=== PATIENT | female | born 1960 | race Caucasian/White ===

== ENCOUNTER 2019-08-08 07:48 | Outpatient (CLI) | payer OTHER, SELFPAY ==
--- NOTE | ~2019-08-08 | CT_ITS ---
EXAMINATION: CT knee RT w con DATE: 08/08/2019 08:33 INDICATION: Pain, swelling and tightness in the right knee for 2 years following right total knee art hroplasty. TECHNIQUE: High resolution computed tomography (CT) of the right knee was performed with 100 mL Omnip aque-350 intravenous contrast. Additional sagittal and coronal reconstructions were performed. Automa hunter exposure control and iterative reconstruction technique were employed. The dose-length product wa s 398.36 mGy-cm. COMPARISON: Right knee radiograph dated 08/03/2019 and 03/09/2005 FINDINGS: Right total knee arthroplasty without patellar resurfacing which appears well seated in near-anatomic alignment. No fracture. No periprosthetic lucency to suggest loosening or infection. Likely benign c hronic cortically based sclerotic lesion along the posterior metadiaphyseal region of the distal femu r which appears. No etiology identified for to been present since 2005. No cortical erosion, lytic co mponent or periosteal reaction to suggest a more aggressive lesion. Small corticated loose osteochond ral body at the superior recess of the suprapatellar pouch. No right knee joint effusion. Moderate fa tty atrophy at the distal aspect of the vastus lateralis. Contrast opacification in the popliteal, an terior tibial and tibioperoneal trunk with no evident stenosis. No abnormally enhancing lesions ident ified. Soft tissues otherwise unremarkable. IMPRESSION: 1. Expected appearance post right total knee arthroplasty with no acute osseous abnormality, joint ef fusion or other etiology identified for reported right knee pain and swelling. Reviewed, dictated and finalized at location A. IMPRESSION: 1. Expected appearance post right total knee arthroplasty with no acute osseous abnormality, joint effusion or other etiology identified for reported right kn ee pain and swelling.
[2019-08-08 08:10] LABS: Estimated Glomerular Filt Rate > 60
== END 2019-08-08 07:49 | disposition home or self-care (01) ==
LOC: ANHIMG 07:53
PROVIDERS: PCP Internal Medicine; Visit Provider Nurse Practitioner Family
DX: T84.84XA Pain due to internal orthopedic prosthetic devices, implants and grafts, initial encounter (principal); Z96.651 Presence of right artificial knee joint
CPT/HCPCS: 36415; 73701; Q9967

== ENCOUNTER 2020-01-23 00:58 | Outpatient (CLI) | payer OTHER, SELFPAY ==
[2020-01-23 18:51] LABS: SARS-CoV-2 RNA PCR Negative
== END 2020-01-23 00:59 | disposition home or self-care (01) ==
LOC: ANHCOVIDDT 00:59
PROVIDERS: PCP Internal Medicine; Visit Provider Specialist
DX: Z01.818 Encounter for other preprocedural examination (principal); Z20.828 Contact with and (suspected) exposure to other viral communicable diseases
CPT/HCPCS: 87635; C9803; U0003

== ENCOUNTER 2020-01-26 05:21 | Day surgery (SDC) | payer OTHER, SELFPAY ==
[2020-01-25 19:34] VITALS: BMI 42.5
[2020-01-26] VITALS (7 sets, daily range): BP systolic 102–161; BP diastolic 67–113; PULSE 64–112; RESP 13–20; TEMP 36.2–36.9; O2SAT 97–98
--- NOTE | 2020-01-26 | ECHO_ITS ---
Patient Info Name: So Boucher Age: 59 years : 1960 Gender: Female Ht: 68 in Wt: 280 lbs BSA: 2.53 m2 HR: 97 bpm BP: 161 / 101 mmHg Heart Rhythm: Atrial Flutter, Sinus Rhythm Technical Quality: Good Exam Date: 01/26/2020 8:33 AM Exam Location: [facility] Patient Status: Outpatient Admit Date: 01/26/2020 Staff Ordering Physician: Christian Lazar MD Base Filler: Kumar Villegas RDCS Attending Provider: Christian Lazar MD Referring Physician: Cady BRYSON; Exam Type: CA echo transesophageal Study Info Indications 427.32 - Atrial flutter Complete two-dimensional, color flow and Doppler transesophageal study is performed. History/Risk Factors Atrial flutter with cardioversion. Summary 1. There is no thrombus visualized in the left atrial appendage. 2. Left atrial chamber dimension is moderately enlarged. 3. There is mild mitral valve regurgitation. 4. DC cardioversion can be safely performed as there is no left atrial appendage thrombus. Left Ventricle Left ventricular chamber dimension is normal. Left ventricular systolic function is normal with an ejection fraction by Biplane Method of Discs of Empty. Right Ventricle Right ventricular chamber dimension is normal. Left Atria Left atrial chamber dimension is moderately enlarged. Right Atria Right atrial chamber dimension is mildly enlarged. Atrial Appendage There is no thrombus visualized in the left atrial appendage. Aortic Valve The aortic valve is normal. Pulmonic Valve The pulmonic valve is normal. Mitral Valve The mitral valve has normal leaflets. There is mild mitral valve regurgitation. Tricuspid Valve The tricuspid valve leaflets are normal. Pericardium/Pleural The pericardium appears normal. Inferior Vena Cava Not well visualized inferior vena cava with Empty collapse upon inspiration consistent with Empty right atrial pressure, Empty. Aorta The aortic root size at the sinus of Valsalva is not well visualized. Report Signatures
--- NOTE | 2020-01-26 | ECG_ITS ---
Measurements Intervals [place] Rate: 65 P: 58 MO: 214 QRS: 54 QRSD: 113 T: 30 QT: 443 QTc: 461 Interpretive Statements SINUS RHYTHM WITH FIRST DEGREE AV BLOCK INTRAVENTRICULAR CONDUCTION DELAY ABNORMAL ECG Electronically Signed On 01-26-2020 10:36:21 RUG INSPECTOR by Miguel A Vail D.O.
--- NOTE | 2020-01-26 07:27 | ECG_ITS ---
Measurements Intervals [place] Rate: 112 P: 107 TN: 200 QRS: 57 QRSD: 122 T: 46 QT: 386 QTc: 528 Interpretive Statements ATRIAL FLUTTER WITH RAPID VENTRICULAR RESPONSE INTRAVENTRICULAR CONDUCTION DELAY MINIMAL Q WAVES- LATERAL LEADS CONSIDER INFERIOR INFARCT, AGE INDETERMINATE BORDERLINE T WAVE ABNORMALITY- ANTERIOR LEADS ABNORMAL ECG Electronically Signed On 01-26-2020 8:07:46 COURIER DELIVERY DRIVER by Miguel A Vail D.O.
--- NOTE | 2020-01-26 08:36 | PM.IMHP ---
H&P: HPI History of Present Illness Date/Time: 01/26/20 08:36 Chief complaint: Atrial Flutter Narrative: So Boucher is a 59 year old female With a history of atrial fibrillation and I believe also atrial flutter who is admitted today as an outpatient for an attempt at cardioversion. The patient follows with Dr. Landry of our practice and has a history of atrial arrhythmias dating back to 1999 18. She had a history of atrial fibrillation in a paroxysmal fashion and was anticoagulated and treated with beta-blockers and had done well. It looks like I saw this patient in the summer of 2018 when she had recurrent palpitations and was found to be in atrial flutter. I recommended attempt at cardioversion which was done successfully and then she was placed on flecainide as anti rhythmic therapy. It looks like she has done well she last saw Dr. Landry in the office in September of this year at which time she was in sinus rhythm and did not have any significant cardiac complaints. According to the office notes she called the office recently reporting that she had been noncompliant with her flecainide and thought she was back in AF. Electrocardiogram appears to show atrial flutter and she was put on my schedule today as an outpatient for a 2nd attempt at cardioversion. Review of Systems Constitutional: Constitutional: Reports no additional constitutional complaints Eyes: Eyes: Reports no additional eye complaints ENT: Reports system reviewed and no additional complaints, except as documented Cardiovascular: Cardiovascular: Reports palpitations Respiratory: Respiratory: Reports no additional respiratory complaints Gastrointestinal: Gastrointestinal: Reports no additional gastrointestinal complaints Musculoskeletal: Musculoskeletal: Reports no additional musculoskeletal complaints Integumentary/Breasts: Skin/Breast: Reports system reviewed and no additional complaints, except as docu Neurologic: Reports system reviewed and no additional complaints, except as documented Psychiatric: Psychiatric: Reports no additional psychiatric complaints [facility] Past Medical History Medical History (Updated 01/26/20 @ 08:38 by Justyna Schofield APRN) Aftercare following right knee joint replacement surgery Atrial fibrillation, chronic Atrial fibrillation, controlled Atrial flutter Chronic pain of left knee Chronic pain of right knee [place] of foot Dysthymia Essential hypertension Gastroesophageal reflux disease without esophagitis Hx of colonic polyp Hyperlipidemia LDL goal <130 Hypothyroidism (acquired) Labral tear of hip, degenerative Left hip pain USP current use of anticoagulant Obesity (BMI 30-39.9) Osteoarthritis of spine with radiculopathy, lumbar region Painful total knee replacement, right Post-surgical hypothyroidism Primary osteoarthritis of both knees Primary osteoarthritis of left hip Shortness of breath Squamous blepharitis of left upper eyelid Surgical History Surgical History Presence of right artificial knee joint Family History Family History Mother Diabetes mellitus, Onset Age: 86 Cerebrovascular accident, Onset Age: 86 Family history of congestive heart failure, Onset Age: 86 Father Acute myocardial infarction, Onset Age: 63 Other Family history of arthritis Family history of cardiovascular disease Family history of hearing loss Hypertension Social History Social History Smoking status: Current every day smoker Tobacco type: e-cigarettes/vaping Second hand tobacco smoke exposure: Yes Alcohol intake: never Substance use: never Substance use type: does not use Living arrangements: with family Spiritual care concerns: No Meds Home Medications and Allergies Home Medications Medication
--- NOTE | 2020-01-26 09:00 | P.PCNTEECA_ITS ---
RIOS with Cardioversion Date of procedure: 01/26/20 Procedure Type: RIOS/cardioversion Diagnosis: recurrent atrial flutter Indications: 59-year-old woman with history of atrial flutter had been maintained on flecainide and had been in sinus rhythm until she missed several doses and now has recurrence of atrial flutter. Potential or uncertain missed doses of Xarelto as well Description of Procedure: RIOS/cardioversion Sedation: propofol in aliquots total dosage of 80 mg given Findings: the patient was brought to the hot plate plywood press laborer recovery area in the postabsorptive state. The she was patient was placed in the supine position with defibrillator patches in the AP position and the defibrillator set at 200 joules in a synchronized fashion. She then had or pharyngeal benzocaine sprayed for topical anesthesia and then was given propofol for sedation. Following that the esophagus was easily intubated using the RIOS probe and the left atrium was inspected carefully. The left atrium is significantly dilated but there is no visible thrombus the atrium had fairly good mobility because of the atrial flutter the appendage was well-visualized was marcos well and had no evidence of clot. The RIOS probe was then withdrawn and she was counter shocked with 200 joules restoring normal sinus rhythm. Conclusion: Successful RIOS/ cardioversion terminating atrial flutter restoring sinus rhythm using 200 joules x1 shock Christian Lazar MD [facility]
--- NOTE | 2020-01-26 10:25 | SUR.PHASEII ---
Discharge instructions given. All questions answered. IV D/C'd. Pt ambulating w steady gait. No lightheadedness. pt left via wheelchair to spouse's vehicle.
[2020-01-26 12:27] LABS: Anion Gap 8 mmol/L (8-16); Blood Urea Nitrogen 20 mg/dL (7-17); Calcium 8.5 mg/dL (8.4-10.2); Carbon Dioxide 27 mmol/L (22-30); Chloride 106 mmol/L (98-107); Estimated CRCL calculation 81 ml/min; Estimated Glomerular Filt Rate > 60; Glucose 109 mg/dL (65-105); Potassium 3.9 mmol/L (3.4-5.0); Sodium 141 mmol/L (137-145)
== END 2020-01-26 10:27 | disposition home or self-care (01) ==
PROVIDERS: PCP Internal Medicine; Visit Provider Specialist
PROC: 5A2204Z Restoration of Cardiac Rhythm, Single (ICD-10-PCS; principal; 2020-01-26 08:30)
PROC: (CPT 93312; 2020-01-26 08:30)
DX: I48.92 Unspecified atrial flutter (principal); I34.0 Nonrheumatic mitral (valve) insufficiency; I10 Essential (primary) hypertension; E78.5 Hyperlipidemia, unspecified; E03.9 Hypothyroidism, unspecified; K21.9 Gastro-esophageal reflux disease without esophagitis; E66.01 Morbid (severe) obesity due to excess calories; Z68.41 Body mass index [BMI] 40.0-44.9, adult; F17.290 Nicotine dependence, other tobacco product, uncomplicated; Z79.01 Long term (current) use of anticoagulants
CPT/HCPCS: 36415; 80048; 83735; 92960; 93005; 93312; 93320; 93325; J2250; J2704; J3010; J7040

== ENCOUNTER 2020-01-30 13:40 | Outpatient (CLI) | payer OTHER, SELFPAY ==
--- NOTE | ~2020-01-30 | XR_ITS ---
EXAMINATION: XR chest 2V 01/30/2020 13:56 INDICATION: Dyspnea PROCEDURE: 2 view chest COMPARISON: Comparison to multiple prior studies sequentially, with oldest reviewed study dated 11/01. FINDINGS: The lungs are clear. The cardiomediastinal silhouette is within normal limits. There are no pleural effusions. There is no pneumothorax suspected. IMPRESSION: 1: NO ACUTE CARDIOPULMONARY DISEASE. Reviewed, dictated and finalized at location A. DENCY COORDINATOR
== END 2020-01-30 13:41 | disposition home or self-care (01) ==
LOC: ANHIMG 13:42
PROVIDERS: PCP Internal Medicine; Visit Provider Internal Medicine Cardiovascular Disease
DX: R06.00 Dyspnea, unspecified (principal)
CPT/HCPCS: 71046

== ENCOUNTER 2020-01-30 17:09 | Emergency (ER) | payer OTHER, SELFPAY ==
[2020-01-30] VITALS (12 sets, daily range): BP systolic 145–198; BP diastolic 61–80; PULSE 45–66; RESP 15–22; TEMP 36.8; O2SAT 94–97
--- NOTE | ~2020-01-30 | CT_ITS ---
EXAMINATION: CTA chest PE protocol EXAM DATE: 01/30/2020 20:02 INDICATION: Chest pain . Shortness of breath, cardioverted recently for atrial fibrillation. TECHNIQUE: Spiral CTA of the chest (pulmonary arteries) was performed with 100 cc Omnipaque 350 intr avenous contrast injection. Images were acquired during the pulmonary arterial phase. Coronal maxi mum intensity projection 3D-reconstructions were created by the technologist on dedicated workstation . Axial, coronal and sagittal reformatted images were reviewed. The dose-length product (DLP) for t his examination was 1039.47 mGy-cm. The exposure was tailored according to patient size (auto mA ex posure control), and iterative reconstruction (ASIR) was used as additional dose reduction technique. Comparison is made to prior examination from 05/20/2017. FINDINGS: Pulmonary arteries are well opacified and without intraluminal filling defects. No thora cic aortic dissection. There is cardiomegaly and dependent predominant groundglass opacities, distri bution is most consistent with pulmonary edema. No change in 3 and 4 mm right lower lobe noncalcified granulomas. There are no pleural or pericardial effusions. Tracheobronchial tree is patent. The re is no mediastinal, hilar or axillary lymphadenopathy. There is no pneumothorax. The main, cent ral pulmonary arteries are dilated which can indicate elevated pulmonary arterial pressure, pulmonary arterial hypertension. There is mild coronary arterial calcification, arterial sclerosis. Upper ab domen is unremarkable. There is thoracic spondylosis without osteoblastic or osteolytic lesions stephany ntified. IMPRESSION: 1. No pulmonary emboli. 2. Cardiomegaly. Dilated pulmonary arteries. 3. Dependent predominant groundglass opacities most likely pulmonary edema. Infection not excludable . Reviewed, dictated and finalized at location A. ESS SPECIALIST IMPRESSION: 1. No pulmonary emboli. 2. Cardiomegaly. Dilated pulmonary arteries. 3. Dependent predominant groundglass opacities most likely pulmonary edema. In fection not excludable.
--- NOTE | 2020-01-30 17:15 | ED.CHESTPAIN ---
HPI - Chest Pain General Chief Complaint: Chest Pain Stated Complaint: Chest Pain Time Seen by Provider: 01/30/20 17:12 History of Present Illness HPI narrative: 59 yo female w/ h/o htn, paroxysmal a-fib presents to the the ED for for chest pain. She has had chest pain for a few days. Mild. Pressure. Worse with exertion and lying flat. Associated wtih NORIEGA. She had cardioversion for atrial fibrillation on 01/25. Follow-up EKG unremarkable. CXR done today was negative. Related Data Home Medications Medication Instructions Recorded Confirmed omeprazole 20 mg capsule,delayed 20 mg PO DAILY 01/04/19 01/26/20 release Allergies Allergy/AdvReac Type Severity Reaction Status Date / Time No Known Allergies Allergy Verified 01/30/20 17:19 Review of Systems Review of Systems: All systems reviewed & are unremarkable except as noted in HPI and below Constitutional: Constitutional: Denies chills and Denies fever(s) ENT: Denies dizziness Cardiovascular: Cardiovascular: Reports chest pain Respiratory: Respiratory: Denies cough and Reports dyspnea Gastrointestinal: Gastrointestinal: Denies abdominal pain and Denies nausea Musculoskeletal: Musculoskeletal: Denies back pain Neurologic: Denies dizziness, Reports headache(s) and Denies weakness Psychiatric: Psychiatric: Denies anxiety [facility] Past Medical History Medical History Aftercare following right knee joint replacement surgery Atrial fibrillation, chronic Atrial fibrillation, controlled Atrial flutter Chronic pain of left knee Chronic pain of right knee [place] of foot Dysthymia Essential hypertension Gastroesophageal reflux disease without esophagitis Hx of colonic polyp Hyperlipidemia LDL goal <130 Hypothyroidism (acquired) Labral tear of hip, degenerative Left hip pain residential current use of anticoagulant Obesity (BMI 30-39.9) Osteoarthritis of spine with radiculopathy, lumbar region Painful total knee replacement, right Post-surgical hypothyroidism Primary osteoarthritis of both knees Primary osteoarthritis of left hip Shortness of breath Squamous blepharitis of left upper eyelid Surgical History Surgical History Presence of right artificial knee joint Family History Family History Mother Diabetes mellitus, Onset Age: 86 Cerebrovascular accident, Onset Age: 86 Family history of congestive heart failure, Onset Age: 86 Father Acute myocardial infarction, Onset Age: 63 Other Family history of arthritis Family history of cardiovascular disease Family history of hearing loss Hypertension Social History Social History Smoking status: Current every day smoker Tobacco type: e-cigarettes/vaping Second hand tobacco smoke exposure: Yes Alcohol intake: never Substance use: never Substance use type: does not use Spiritual care concerns: No Exam Const: General: no acute distress and alert Nutritional Appearance: obese Orientation/consciousness: patient oriented x3 HENMT: Head: normal to inspection Neck: Neck: normal visual inspection Chest: Chest palpation & inspection: normal inspection of the chest and no tenderness Resp: Effort & Inspection: normal respiratory effort Auscultation: clear to auscultation bilaterally Cardio: Rate: regular rate Rhythm: regular rhythm GI: GI Palp: Yes Soft to palpation and No Tenderness to palpation present (GI) Skin: General skin exam: normal color Neuro: General: patient oriented x3, moves all extremities, no focal motor deficits and CN's II-XI intact bilaterally Speech: normal speech Extrem: General: edema bilateral (Mild) Course Vital Signs Vital signs: Vital Signs Temperature 36.8 C 01/30/20 17:14 Pulse Rate 66 1
--- NOTE | 2020-01-30 17:18 | ECG_ITS ---
Measurements Intervals [place] Rate: 57 P: 76 PA: 201 QRS: 35 QRSD: 122 T: 46 QT: 445 QTc: 435 Interpretive Statements SINUS BRADYCARDIA BORDERLINE AV CONDUCTION DELAY BASELINE ARTIFACT- I, II, AVR, V3 BORDERLINE ECG Electronically Signed On 01-31-2020 7:03:13 POOL INSTALLER by Miguel A Vail D.O.
[2020-01-30] MEDS: ASPIRIN 81 MG CHEWABLE TABLET 324 MG PO (17:29)
[2020-01-30 17:34] LABS: Basophils Absolute Auto 0.1 K/mm3 (0.0-0.1); Basophils Percent Auto 0.6 % (0.2-1.2); Eosinophils Absolute Auto 0.2 K/mm3 (0-0.3); Eosinophils Percent Auto 1.7 % (0-4.4); Hematocrit 37.3 % (37.0-47.0); Hemoglobin 12.1 g/dL (12.0-15.0); Immature Granulocyte Absolute 0.05 K/mm3 (0.00-0.031); Immature Granulocyte Percent A 0.4 % (0-0.5); Lymphocytes Absolute Auto 2.76 K/mm3 (0.9-3.2); Lymphocytes Percent Auto 23.4 % (18.3-44.2); Mean Corpuscular HGB Conc 32.4 g/dl (32-36); Mean Corpuscular Hemoglobin 26.8 pg (26-34); Mean Corpuscular Volume 82.5 fl (80-100); Mean Platelet Volume 11.1 fl (7.4-10.4); Monocytes Absolute Auto 0.9 K/mm3 (0.1-0.6); Monocytes Percent Auto 7.7 % (2.6-8.5); Neutrophils Absolute Auto 7.8 K/mm3 (1.3-6.7); Neutrophils Percent Auto 66.2 % (45.5-73.1); Platelet Count Result 286 k/mm3 (150-375); Red Blood Count 4.52 M/mm3 (4.2-5.4); White Blood Count 11.8 K/mm3 (4.5-10.0)
[2020-01-30 17:43] LABS: Anion Gap 7 mmol/L (8-16); Blood Urea Nitrogen 13 mg/dL (7-17); Calcium 8.6 mg/dL (8.4-10.2); Carbon Dioxide 29 mmol/L (22-30); Chloride 103 mmol/L (98-107); Estimated CRCL calculation 90 ml/min; Estimated Glomerular Filt Rate > 60; Glucose 125 mg/dL (65-105); INR 1.3; Potassium 3.8 mmol/L (3.4-5.0); Prothrombin Time 16.5 Seconds (11.1-14.7); Sodium 139 mmol/L (137-145)
[2020-01-30 17:44] LABS: Partial Thromboplastin Time 31.5 SECONDS (22.3-36.8)
[2020-01-30 17:55] LABS: Troponin I < 0.012 ng/mL (0.000-0.034)
[2020-01-30 20:44] LABS: Troponin I < 0.012 ng/mL (0.000-0.034)
[2020-01-30 21:10] LABS: NT Pro B Type Natriuretic Pept 652 PG/ML (5-100)
[2020-01-31 12:24] LABS: SARS-CoV-2 RNA PCR Negative
== END 2020-01-30 21:59 | disposition home or self-care (01) ==
PROVIDERS: Emergency Provider Emergency Medicine; PCP Internal Medicine
DX: R07.89 Other chest pain (principal); R06.00 Dyspnea, unspecified; Z20.828 Contact with and (suspected) exposure to other viral communicable diseases; I48.0 Paroxysmal atrial fibrillation; I10 Essential (primary) hypertension; K21.9 Gastro-esophageal reflux disease without esophagitis; E78.5 Hyperlipidemia, unspecified; E03.9 Hypothyroidism, unspecified; Z79.01 Long term (current) use of anticoagulants; M47.816 Spondylosis without myelopathy or radiculopathy, lumbar region; Z96.651 Presence of right artificial knee joint; M17.0 Bilateral primary osteoarthritis of knee; M16.12 Unilateral primary osteoarthritis, left hip; Z86.010 Personal history of colon polyps; F17.290 Nicotine dependence, other tobacco product, uncomplicated; R00.1 Bradycardia, unspecified; R94.31 Abnormal electrocardiogram [ECG] [EKG]; I51.7 Cardiomegaly; R91.8 Other nonspecific abnormal finding of lung field
CPT/HCPCS: 36415; 71275; 80048; 83880; 84484; 85025; 85610; 85730; 87635; 93005; 99284; A9270; C9803; Q9967; U0003

== ENCOUNTER 2020-02-26 08:29 | Outpatient (CLI) | payer OTHER, SELFPAY ==
--- NOTE | 2020-04-04 13:40 | WPDHOMESLEEP ---
Sleep Study - Home Unattended Date of Study: 02/26/20 Ordering Provider: Jordi Schwartz MD Interpreting Physician: Latha Cespedes MD Home Sleep Study Type: Apnea Link Air Height: 1.73 m Weight: 122.47 kg Body Mass Index: 41.0 Neck Circumference (inches): 16 [place]: 5 Reason for Sleep Study history of sleep apnea, used CPAP device in the past; now with increased symptom Split night study 03/07/2013 : AHI 4.9; CPAP optimal pressure 14 cm Sleep History So Boucher is a 59-year-old female who was diagnosed with obstructive sleep apnea syndrome 8 years ago, used CPAP for a short period. She currently has excessive daytime sleepiness and difficulty waking in the morning. She frequently snores, occasionally loudly enough that others complain about it. She does not awaken at night with heartburn, belching or coughing. She rarely awakens from sleep feeling short of breath. She really has trouble sleeping with a cold. She rarely gasps for breath at night. She frequently has breathing problems at night observed by others. She does not sweat excessively at night or notice her heart pounding or beating irregularly at night. She occasionally falls asleep during the day, rarely involuntarily and never while driving. She does not fall asleep while exerting physical effort. She does not have loss of muscle tone was strong emotion. She does not have daytime dysfunction due to excessive sleepiness, currently is retired. She does not feel paralyzed on waking or falling asleep and does not have vivid dreamlike scenes upon awakening or falling asleep. She is not afraid to go to sleep. She does not have nightmares. She occasionally remembers her dreams. She rarely has racing thoughts, really feels sad or depressed. She never has anxiety. She does not have muscular tension, does not notice parts of her body jerking and she does not kick at night. She occasionally has crawling and aching feelings in her legs. She does not have leg pain at night and does not wake up with morning jaw pain. She does not grind her teeth at night. She is not bothered by pain during the day. She is not awakened by pain at night. She occasionally wakes up feeling stiff in the morning, rarely was sore achy muscles rarely with pain in the neck and spine. SHe has faigue. Normal bedtime is 11:00 p.m. falling asleep within 15 or 20 minutes, waking twice at night to urinate. He takes only a few minutes for her to return to sleep. She wakes in the morning at 9:00 a.m.. Weekend schedule shows that she goes to bed later, 1:00 a.m. but still wakes at 9:00 a.m.. She estimates getting 7-8 hours of sleep at night. She does take naps in the afternoon or evening. A short nap may be refreshing. She feels better in the morning compared other times of day. Habits: She currently vapes. No mention of smoking tobacco, using caffeine, alcohol or recreational drugs. 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
[2020-04-04 13:54] VITALS: BMI 41.0
== END 2020-02-26 08:30 | disposition home or self-care (01) ==
LOC: ANHCSM 08:30
PROVIDERS: PCP Internal Medicine; Visit Provider Internal Medicine
DX: G47.30 Sleep apnea, unspecified (principal); G47.33 Obstructive sleep apnea (adult) (pediatric)
CPT/HCPCS: 95806

== ENCOUNTER → 2020-05-08 03:52 | Outpatient (CLI) | payer OTHER, SELFPAY ==
[2020-05-08 16:22] LABS: SARS-CoV-2 RNA PCR Negative
== END ==
PROVIDERS: PCP Internal Medicine; Visit Provider Internal Medicine Critical Care Medicine
DX: R68.89 Other general symptoms and signs (principal); Z20.822 Contact with and (suspected) exposure to COVID-19
CPT/HCPCS: C9803; U0003; U0005

== ENCOUNTER 2020-05-10 09:06 | Outpatient (CLI) | payer OTHER, SELFPAY ==
--- NOTE | 2020-05-24 15:31 | WPDSLEEPSTUD ---
Sleep Study Ordering Provider: Jordi Guerrero MD Interpreting Physician: Lahta Cespedes MD Sleep Study Type: CPAP Titration Height: 1.73 m Weight: 122.47 kg Body Mass Index: 41.0 Neck Circumference (inches): 16 [place]: 8 Reason for Sleep Study 02/26/2020 Home sleep test with severe obstructive sleep apnea with an AHI of 35, multiple desaturations, minimum of 72%, 28 minutes spent below 88% as well as snoring. This patient has a history of atrial fibrillation. She presents for CPAP titration. She had a diagnosis of PATRICK in the past, however was not able to tolerate CPAP. Sleep History So Boucher is a 59-year-old female who was diagnosed with obstructive sleep apnea syndrome 8 years ago, used CPAP for a short period. She currently has excessive daytime sleepiness and difficulty waking in the morning. She frequently snores, occasionally loudly enough that others complain about it. She does not awaken at night with heartburn, belching or coughing. She rarely awakens from sleep feeling short of breath. She really has trouble sleeping with a cold. She rarely gasps for breath at night. She frequently has breathing problems at night observed by others. She does not sweat excessively at night or notice her heart pounding or beating irregularly at night. She occasionally falls asleep during the day, rarely involuntarily and never while driving. She does not fall asleep while exerting physical effort. She does not have loss of muscle tone was strong emotion. She does not have daytime dysfunction due to excessive sleepiness, currently is retired. She does not feel paralyzed on waking or falling asleep and does not have vivid dreamlike scenes upon awakening or falling asleep. She is not afraid to go to sleep. She does not have nightmares. She occasionally remembers her dreams. She rarely has racing thoughts, rarely feels sad or depressed. She never has anxiety. She does not have muscular tension, does not notice parts of her body jerking and she does not kick at night. She occasionally has crawling and aching feelings in her legs. She does not have leg pain at night and does not wake up with morning jaw pain. She does not grind her teeth at night. She is not bothered by pain during the day. She is not awakened by pain at night. She occasionally wakes up feeling stiff in the morning, rarely was sore achy muscles rarely with pain in the neck and spine. She has faigue. Normal bedtime is 11:00 p.m. falling asleep within 15 or 20 minutes, waking twice at night to urinate. He takes only a few minutes for her to return to sleep. She wakes in the morning at 9:00 a.m.. Weekend schedule shows that she goes to bed later, 1:00 a.m. but still wakes at 9:00 a.m.. She estimates getting 7-8 hours of sleep at night. She does take naps in the afternoon or evening. A short nap may be refreshing. She feels better in the morning compared other times of day. Habits: She currently vapes. No mention of smoking tobacco, using caffeine, alcohol or recreational drugs. 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
[2020-05-24 15:32] VITALS: BMI 41.0
== END 2020-05-10 09:07 | disposition home or self-care (01) ==
LOC: ANHCSM 09:06
PROVIDERS: PCP Internal Medicine; Visit Provider Internal Medicine
DX: G47.33 Obstructive sleep apnea (adult) (pediatric) (principal)
CPT/HCPCS: 95811

== ENCOUNTER 2021-03-26 00:28 | Day surgery (SDC) | payer OTHER, SELFPAY ==
[2021-03-24 09:13] VITALS: BMI 43.1
[2021-03-26 07:49] VITALS: BP 111/92; PULSE 64; RESP 16; TEMP 35.8; O2SAT 97; BMI 42.6
[2021-03-26] MEDS: LACTATED RINGERS 1,000 ML 150 ML IV CONT (07:57)
--- NOTE | 2021-03-26 09:01 | PM.HPGS ---
History of Present Illness History of Present Illness Consent: Risks, benefits, and alternatives have been discussed and questions answered. Patient agrees to proceed with procedure. Chief complaint: neoplasm screening Narrative: So Boucher is a 60 year old female with colon polyp 6 years ago. Review of Systems Constitutional: Constitutional: Denies headache(s) and Denies weakness Eyes: Eyes: Denies blurry vision ENT: Reports Normal hearing present, Denies headache(s) and Denies neck pain Cardiovascular: Cardiovascular: Denies chest pain and Denies dyspnea Respiratory: Respiratory: Denies dyspnea Gastrointestinal: Gastrointestinal: Reports no additional gastrointestinal complaints Genitourinary: Genitourinary: Denies dysuria Musculoskeletal: Musculoskeletal: Denies neck pain Integumentary/Breasts: Skin/Breast: Denies dry skin Neurologic: Reports Normal hearing present, Denies headache(s) and Denies weakness Psychiatric: Psychiatric: Denies anxiety Endocrine: Endocrine: Denies change in body appearance Hematologic/Lymphatic: Hematologic/Lymphatic: Denies easy bleeding Allergic/Immunologic: Allergic/Immunologic: Denies urticaria PMFSH Past Medical History Medical History Aftercare following right knee joint replacement surgery Atrial fibrillation, chronic Atrial fibrillation, controlled Atrial flutter Chronic pain of left knee Chronic pain of right knee [place] of foot Dysthymia Essential hypertension Gastroesophageal reflux disease without esophagitis History of vaginal delivery Hx of colonic polyp Hyperlipidemia LDL goal <130 Hypothyroidism (acquired) Labral tear of hip, degenerative Left hip pain longterm current use of anticoagulant Obesity (BMI 30-39.9) Osteoarthritis of spine with radiculopathy, lumbar region Painful total knee replacement, right Post-surgical hypothyroidism Primary osteoarthritis of both knees Primary osteoarthritis of left hip Shortness of breath Squamous blepharitis of left upper eyelid Surgical History Surgical History H/O thyroidectomy History of endometrial ablation Hx of tonsillectomy Presence of right artificial knee joint Family History Family History Mother Diabetes mellitus, Onset Age: 86 Cerebrovascular accident, Onset Age: 86 Family history of congestive heart failure, Onset Age: 86 Father Acute myocardial infarction, Onset Age: 63 Other Family history of arthritis Family history of cardiovascular disease Family history of hearing loss Hypertension Social History Social History Smoking status: Former smoker Tobacco type: e-cigarettes/vaping Second hand tobacco smoke exposure: Yes Alcohol intake: never Substance use: never Substance use type: does not use Living arrangements: with family Spiritual care concerns: No Meds Home Medications and Allergies Home Medications Medication Instructions Recorded Confirmed Type omeprazole 20 mg capsule,delayed 20 mg PO DAILY 01/04/19 03/26/21 History release flecainide 100 mg tablet 100 mg PO Q12H #180 tablet 02/23/20 03/26/21 Rx escitalopram oxalate 10 mg tablet 10 mg PO DAILY #90 tablet 04/29/20 03/26/21 Rx atorvastatin 10 mg tablet 10 mg PO DAILY #90 tablet 10/29/20 03/26/21 Rx levothyroxine 75 mcg tablet 75 mcg PO DAILY #90 tablet 10/29/20 03/26/21 Rx furosemide 20 mg tablet 20 mg PO QAM #90 tablet 02/13/21 03/26/21 Rx rivaroxaban 20 mg tablet 20 mg PO DAILY #90 tablet 02/13/21 03/26/21 Rx Allergies Allergy/AdvReac Type Severity Reaction Status Date / Time No Known Allergies Allergy Verified 03/26/21 07:47 Vital Signs Vital Signs - 24 hr 03/26/21 07:49 Temperature 96.4 F L Pulse Rate 64 Respiratory Rate
[2021-03-26 09:32] VITALS: BP 127/60; PULSE 42; RESP 15; O2SAT 94
[2021-03-26 09:42] VITALS: BP 166/69; PULSE 48; RESP 17; O2SAT 96
[2021-03-26 09:52] VITALS: BP 173/81; PULSE 45; RESP 19; O2SAT 97
== END 2021-03-26 09:59 | disposition home or self-care (01) ==
PROVIDERS: PCP Internal Medicine; Visit Provider Internal Medicine Gastroenterology
PROC: 0DJD8ZZ Inspection of Lower Intestinal Tract, Via Natural or Artificial Opening Endoscopic (ICD-10-PCS; CPT 45378; principal; 2021-03-26 09:00)
DX: Z12.11 Encounter for screening for malignant neoplasm of colon (principal); D12.2 Benign neoplasm of ascending colon; K63.5 Polyp of colon; K57.30 Diverticulosis of large intestine without perforation or abscess without bleeding; K64.8 Other hemorrhoids; I48.20 Chronic atrial fibrillation, unspecified; I10 Essential (primary) hypertension; K21.9 Gastro-esophageal reflux disease without esophagitis; E78.5 Hyperlipidemia, unspecified; E89.0 Postprocedural hypothyroidism; Z87.891 Personal history of nicotine dependence; Z79.01 Long term (current) use of anticoagulants
CPT/HCPCS: 45385; 88305; J2704; J7120

== ENCOUNTER 2021-04-22 11:50 | Inpatient (IN) | payer OTHER, SELFPAY ==
[2021-04-22] VITALS (15 sets, daily range): BP systolic 101–160; BP diastolic 66–98; PULSE 111–122; RESP 12–20; TEMP 36.4–37.1; O2SAT 94–100; BMI 43.4
--- NOTE | ~2021-04-22 | XR_ITS ---
EXAMINATION: XR chest 2V DATE: 04/22/2021 12:28 INDICATION: Chest pain. Dyspnea. TECHNIQUE: Frontal and lateral views of the chest were obtained. COMPARISON: Chest 2 views 01/30/2020, chest CT 01/30/2020 FINDINGS: There is mild atelectasis in left lower lung zone. No pleural effusion or pneumothorax. The heart size is normal. There are surgical clips in the neck. IMPRESSION: 1. Mild atelectasis in left lower lung zone. Reviewed, dictated and finalized at location A. COLLECTION ASSOCIATE
--- NOTE | 2021-04-22 11:54 | ECG_ITS ---
Measurements Intervals [place] Rate: 109 P: GA: 0 QRS: 52 QRSD: 116 T: 18 QT: 341 QTc: 460 Interpretive Statements ATRIAL FIBRILLATION WITH RAPID VENTRICULAR RESPONSE INTRAVENTRICULAR CONDUCTION DELAY COMPARED TO ECG 01/30/2020 17:20:56 ATRIAL FIBRILLATION NOW PRESENT INTRAVENTRICULAR CONDUCTION DELAY NOW PRESENT Electronically Signed On 04-22-2021 12:16:45 CASH REGISTER MECHANIC by Enoc Gooden M.D.
[2021-04-22 12:16] LABS: Basophils Absolute Auto 0.1 K/mm3 (0.0-0.1); Basophils Percent Auto 0.7 % (0.2-1.2); Eosinophils Absolute Auto 0.2 K/mm3 (0-0.3); Eosinophils Percent Auto 1.7 % (0-4.4); Hematocrit 49.7 % (37.0-47.0); Hemoglobin 15.6 g/dL (12.0-15.0); Immature Granulocyte Absolute 0.03 K/mm3 (0.00-0.031); Immature Granulocyte Percent A 0.3 % (0-0.5); Lymphocytes Absolute Auto 2.54 K/mm3 (0.9-3.2); Lymphocytes Percent Auto 24.7 % (18.3-44.2); Mean Corpuscular HGB Conc 31.4 g/dl (32-36); Mean Corpuscular Hemoglobin 27.5 pg (26-34); Mean Corpuscular Volume 87.7 fl (80-100); Mean Platelet Volume 11.2 fl (7.4-10.4); Monocytes Absolute Auto 0.7 K/mm3 (0.1-0.6); Monocytes Percent Auto 6.9 % (2.6-8.5); Neutrophils Absolute Auto 6.8 K/mm3 (1.3-6.7); Neutrophils Percent Auto 65.7 % (45.5-73.1); Platelet Count Result 317 k/mm3 (150-375); Red Blood Count 5.67 M/mm3 (4.2-5.4); Red Cell Distribution Width 17.4 % (11.5-14.5); White Blood Count 10.3 K/mm3 (4.5-10.0)
[2021-04-22 12:26] LABS: INR 1.2; Prothrombin Time 14.9 Seconds (11.1-14.7)
[2021-04-22] MEDS: ASPIRIN 81 MG CHEWABLE TABLET 324 MG PO (12:33)
[2021-04-22 12:38] LABS: Alanine Aminotransferase 23 U/L (4-35); Albumin Level 4.8 g/dL (3.5-5.1); Alkaline Phosphatase 148 U/L (38-126); Anion Gap 11 mmol/L (8-16); Aspartate Amino Transferase 30 U/L (14-36); Bilirubin,Total 1.5 mg/dL (0.2-1.3); Blood Urea Nitrogen 17 mg/dL (7-17); Calcium 9.2 mg/dL (8.4-10.2); Carbon Dioxide 30 mmol/L (22-30); Chloride 102 mmol/L (98-107); Estimated CRCL calculation 88 ml/min; Estimated Glomerular Filt Rate > 60; Glucose 137 mg/dL (65-110); Lipase 97 U/L (23-300); Potassium 3.9 mmol/L (3.4-5.0); Sodium 143 mmol/L (137-145)
--- NOTE | 2021-04-22 12:44 | ED.ARRPALP ---
HPI - Arrhythmia/Palpitations General Chief Complaint: Arrhythmia/Palpitations Stated Complaint: palpitations, SOB Time Seen by Provider: 04/22/21 12:14 Source: patient and family Mode of arrival: ambulatory Limitations: no limitations History of Present Illness HPI narrative: Patient is 60 years old white female presented to the ED with fast irregular heartbeat that started at 9 AM today. Patient on Xarelto. History of paroxysmal A. fib. Patient normally in normal sinus rhythm. The above symptoms was associated with chest tightness and shortness of breath. Patient denies any fever, chills, nausea, vomiting, back pain, headache. Patient reports a lot of stress lately. Related Data Home Medications Medication Instructions Recorded Confirmed omeprazole 20 mg capsule,delayed 20 mg PO DAILY 01/04/19 03/26/21 release Allergies Allergy/AdvReac Type Severity Reaction Status Date / Time No Known Allergies Allergy Verified 04/22/21 11:57 Review of Systems Review of Systems: CONSTITUTIONAL: Denies fever, chills, or sweats. EYES: Denies visual changes, redness, or discharge. ENT: Denies rhinorrhea, congestion, sore throat, or otalgia. CARDIOVASCULAR: Denies chest pain, palpitations, or edema. RESPIRATORY: Denies cough or dyspnea. GASTROINTESTINAL: Denies abdominal pain, nausea, vomiting, or diarrhea. GENITOURINARY: Denies dysuria or hematuria. SKIN: Denies rash or itching. MUSCULOSKELETAL: Denies back pain, joint pain, or myalgia. NEUROLOGIC: Denies headache, numbness, or weakness. PSYCHIATRIC: Denies anxiety or depression. 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 Obesity (BMI 30-39.9) Osteoarthritis of spine with radiculopathy, lumbar region Painful total knee replacement, right Post-surgical hypothyroidism Primary osteoarthritis of both knees Primary osteoarthritis of left hip Shortness of breath Squamous blepharitis of left upper eyelid Surgical History Surgical History H/O thyroidectomy History of endometrial ablation Hx of tonsillectomy Presence of right artificial knee joint Family History Family History Mother Diabetes mellitus, Onset Age: 86 Cerebrovascular accident, Onset Age: 86 Family history of congestive heart failure, Onset Age: 86 Father Acute myocardial infarction, Onset Age: 63 Other Family history of arthritis Family history of cardiovascular disease Family history of hearing loss Hypertension Social History Social History Smoking status: Former smoker Tobacco type: e-cigarettes/vaping Second hand tobacco smoke exposure: Yes Alcohol intake: never Substance use: never Substance use type: does not use Spiritual care concerns: No Exam Narrative: General appearance: Well-developed, well-nourished Skin: Normal color Head: Normocephalic, nontraumatic Eyes: Clear conjunctiva ENT: Oropharynx normal, ears normal, nose normal Neck: Supple, nontender Chest and respiratory: Airway patent, no respiratory distress, no accessory muscle use Heart: Tachycardia, irregular irregularity Abdomen: Soft, nontender, no organomegaly, quiet bowel sounds Vascular: Normal peripheral pulses, normal capillary refill. Musculoskeletal: Normal range of motion, nontender back Neurologic: A
[2021-04-22 12:50] LABS: Troponin I < 0.012 ng/mL (0.000-0.034)
[2021-04-22] MEDS: dilTIAZem 100 MG/100 ML 100 MG/100 ML BAG IV CONT (12:54)
[2021-04-22] MEDS: dilTIAZem HCl INJ 25 MG/5 ML VIAL 15 MG IV PUSH (12:55)
--- NOTE | 2021-04-22 14:13 | ECG_ITS ---
Measurements Intervals [place] Rate: 113 P: [place]: 0 QRS: 25 QRSD: 110 T: -30 QT: 386 QTc: 530 Interpretive Statements ATRIAL FLUTTER/TACHYCARDIA WITH RAPID VENTRICULAR RESPONSE ST DEVIATION AND MODERATE T-WAVE ABNORMALITY, CONSIDER INFERIOR ISCHEMIA [-0.1+ mV T- WAVE IN II/aVF] ABNORMAL ECG COMPARED TO ECG 04/22/2021 12:00:24 ATRIAL FLUTTER NOW PRESENT Electronically Signed On 04-22-2021 16:28:02 CARROTING MACHINE OFFBEARER by Fritz Estrada M.D.
--- NOTE | 2021-04-22 14:15 | PM.IMHP ---
H&P: HPI History of Present Illness Date/Time: 04/22/21 14:15 Chief Complaint: Palpitations. Narrative: This is a 60-year-old female with paroxysmal atrial fibrillation, hypertension, hyperlipidemia, hypothyroidism, and untreated obstructive sleep apnea who presented to the emergency department today for evaluation of palpitations. Shortly after getting out of bed this morning, she developed sudden onset of palpitations with sensations of a racing heart, mild chest tightness, and shortness of breath. The symptoms are similar to those she has had with atrial fibrillation in the past and after approximately 3 hours she decided to come in for evaluation. Indeed she was found to be in atrial fibrillation/flutter with rapid ventricular response and she was started on a Cardizem drip in the emergency department and she has since been admitted to the IMU for further care. She is a patient of Dr. Landry and she has been on flecainide for many years, previously requiring cardioversion. She states compliance with her medication and she has not had any recent illnesses though she admits to increasing familial stress over the past 1 week. At the time of my evaluation she has no specific complaints and she is not currently having any chest pain. Review of Systems Review of Systems: 12 systems were reviewed. No fever, chills, or sweats. She denies recent cold and flu symptoms. No syncope or near syncope. She denies pleuritic pain. No nausea, vomiting, or diarrhea. Except as documented, all other systems were reviewed and are negative. [facility], [facility] Past Medical History Medical History (Updated 04/22/21 @ 16:44 by Amena Valdez PA-C) Atrial flutter Dysthymia Essential hypertension Gastroesophageal reflux disease without esophagitis Hyperlipidemia [facility]PC current use of anticoagulant Obstructive sleep apnea Intolerant to CPAP. Osteoarthritis Paroxysmal atrial fibrillation Restless leg syndrome Surgical History Surgical History (Updated 04/22/21 @ 16:39 by Amena Valdez PA-C) History of arthroplasty of right knee History of colonoscopy with polypectomy History of endometrial ablation History of thyroidectomy History of tonsillectomy Family History Family History Mother Diabetes mellitus, Onset Age: 86 Cerebrovascular accident, Onset Age: 86 Family history of congestive heart failure, Onset Age: 86 Father Acute myocardial infarction, Onset Age: 63 Other Family history of arthritis Family history of cardiovascular disease Family history of hearing loss Hypertension Social History Social History (Updated 04/22/21 @ 16:41 by Amena Valdez PA-C) Social History: Surrogate decision-maker: Joseline Boucher, . CODE STATUS: Full code. Smoking status: Current every day smoker Tobacco type: e-cigarettes/vaping Second hand tobacco smoke exposure: Yes Alcohol intake: never Substance use: never Substance use type: does not use Meds Home Medications and Allergies Home Medications Medication Instructions Recorded Confirmed Type omeprazole 20 mg capsule,delayed 20 mg PO DAILY 01/04/19 03/26/21 History release flecainide 100 mg tablet 100 mg PO Q12H #180 tablet 02/23/20 03/26/21 Rx escitalopram oxalate 10 mg tablet 10 mg PO DAILY #90 tablet 04/29/20 03/26/21 Rx atorvastatin 10 mg PO HS 04/22/21 04/22/21 History furosemide 20 mg PO DAILY 04/22/21 04/22/21 History levothyroxine 75 mcg PO QAM 04/22/21 04/22/21 History rivaroxaban [Xarelto] 20 mg PO HS 04/22/21 04/22/21 History Allergies Allergy/AdvReac Type Severity Reaction Status Date / Time No Known Allergies Allergy Verified 04/22/21 11:57 Vital Signs Vital Signs - 24 hr 04/22/21 11:52 04/22/21 12:33 04/22/21 12:54 Temperature 97.8 F Pulse Rate 112 H 112 H 111 H Respiratory Rate 16 19 Blood Pressure 160/98 H 133/78 101/80 Pulse Oximetry 100 99
[2021-04-22 15:28] LABS: Troponin I < 0.012 ng/mL (0.000-0.034)
--- NOTE | 2021-04-22 16:32 | ADMGEN ---
This patient, So Boucher, was admitted to IMU Room 212-01. Patient/family oriented to hospital policies and general routines including ID bracelet, bed and alarms, visiting hours, pain management, procedures, bathroom and other care routines, personal items, smoking policy, room service/diet, and visiting hours. Information on how to activate the Rapid Response Team has been discussed. Patient/Family are encouraged to report perceived risks to care and to ask questions if they do not understand what they are told or what they should do.
[2021-04-22 18:46] LABS: Troponin I < 0.012 ng/mL (0.000-0.034)
[2021-04-23] VITALS (20 sets, daily range): BP systolic 106–123; BP diastolic 54–77; PULSE 79–122; RESP 16–20; TEMP 36.2–36.9; O2SAT 95–98
[2021-04-23] MEDS: FLECAINIDE ACETATE 100 MG TABLET PO ×3 (02:52→19:42)
[2021-04-23] MEDS: dilTIAZem 100 MG/100 ML 100 MG/100 ML BAG IV CONT ×2 (02:53→19:44)
[2021-04-23] MEDS: ATORVASTATIN 10 MG TABLET PO ×2 (02:53→19:43)
[2021-04-23] MEDS: RIVAROXABAN 20 MG TABLET PO ×2 (02:57→19:42)
[2021-04-23 05:06] LABS: Hematocrit 45.8 % (37.0-47.0); Hemoglobin 14.2 g/dL (12.0-15.0); Mean Corpuscular Hemoglobin 27.5 pg (26-34); Mean Corpuscular Volume 88.8 fl (80-100); Mean Platelet Volume 11.4 fl (7.4-10.4); Platelet Count Result 282 k/mm3 (150-375); Red Blood Count 5.16 M/mm3 (4.2-5.4); Red Cell Distribution Width 16.6 % (11.5-14.5); White Blood Count 9.9 K/mm3 (4.5-10.0)
[2021-04-23 05:15] LABS: Anion Gap 6 mmol/L (8-16); Blood Urea Nitrogen 22 mg/dL (7-17); Calcium 8.5 mg/dL (8.4-10.2); Carbon Dioxide 29 mmol/L (22-30); Chloride 104 mmol/L (98-107); Estimated CRCL calculation 78 ml/min; Estimated Glomerular Filt Rate > 60; Glucose 113 mg/dL (65-110); Potassium 3.9 mmol/L (3.4-5.0); Sodium 139 mmol/L (137-145)
[2021-04-23] MEDS: LEVOTHYROXINE SODIUM 75 MCG TABLET PO (06:27)
--- NOTE | 2021-04-23 09:23 | PM.IMPN ---
Progress Note: A&P Assessment and Plan (1) Atrial fibrillation with rapid ventricular response: Code(s): I48.91 - Unspecified atrial fibrillation Status: Acute Assessment and Plan: Patient takes flecainide and states compliance with this drug. She was started on diltiazem drip in the emergency department which will be continued. Cardiology has been consulted as she has required cardioversion in the past. Continue rivaroxaban. Troponin x3 negative this admission TSH normal at 1.9 magnesium is normal at 2.0 potassium normal at 3.9 (2) Polycythemia: Code(s): D75.1 - Secondary polycythemia Status: Acute Assessment and Plan: She has not had labs done at this facility for over a year and a half but she has never had documented polycythemia. Does not appear dehydrated. She may very well chronic hypoxia from untreated sleep apnea with possible obesity hypoventilation overlap. Repeat labs today with improvement in polycythemia (3) Obstructive sleep apnea: Code(s): G47.33 - Obstructive sleep apnea (adult) (pediatric) Status: Acute Assessment and Plan: She has not been tolerant to CPAP despite trying multiple different masks. We discussed the importance of treating her sleep apnea . She did not try it last night. She will attempted tonight with auto CPAP from this hospital. Has also suggested seeing a sleep specialist for titration (4) Hypothyroidism: Code(s): E03.9 - Hypothyroidism, unspecified Status: Acute Assessment and Plan: Continue levothyroxine. TSH within normal limits. Subjective Date/time seen: 04/23/21 09:23 Interval history: HPI:This is a 60-year-old female with paroxysmal atrial fibrillation, hypertension, hyperlipidemia, hypothyroidism, and untreated obstructive sleep apnea who presented to the emergency department today for evaluation of palpitations. Shortly after getting out of bed this morning, she developed sudden onset of palpitations with sensations of a racing heart, mild chest tightness, and shortness of breath. The symptoms are similar to those she has had with atrial fibrillation in the past and after approximately 3 hours she decided to come in for evaluation. Indeed she was found to be in atrial fibrillation/flutter with rapid ventricular response and she was started on a Cardizem drip in the emergency department and she has since been admitted to the IMU for further care. She is a patient of Dr. Landry and she has been on flecainide for many years, previously requiring cardioversion. She states compliance with her medication and she has not had any recent illnesses though she admits to increasing familial stress over the past 1 week. At the time of my evaluation she has no specific complaints and she is not currently having any chest pain. 04/23/2021 remains in atrial fibrillation. On diltiazem drip. Denies any new complaints. No shortness of breath or chest pain no leg swelling. Did not try the CPAP machine last night. Review of Systems Review of Systems: All systems reviewed & are unremarkable except as noted in HPI and below (HPI) Exam Narrative: General: Well-developed female HEENT: PERRL, EOMI. Sclerae anicteric. Oral mucosa moist. Oropharynx is crowded. Neck: Supple. Exam limited by neck circumference. No obvious JVD. Respiratory: Lungs are clear to auscultation bilaterally. Cardiovascular: Irregularly irregular rate and rhythm with S1-S2. Gastrointestinal: Abdomen is soft, obese, nontender, and nondistended with positive bowel sounds. Skin: Warm and dry. No rash or lesions on limited exam. Extremities: No cyanosis or clubbing. 1+ periankle edema bilaterally with trace bilateral pretibial edema. Radial and pedal pulses intact. Neurological: Alert. Cranial nerves 2-12 are grossly intact. No gross focal deficits to casual conversation. Psychiatric: Pleasant and cooperative with normal mood and affect. Judgment and insi
--- NOTE | 2021-04-23 09:24 | PM.CNCAR ---
Assessment and Plan Additional Plan 60-year-old lady with paroxysmal atrial flutter admitted yesterday with a symptomatic recurrence of this arrhythmia. She understands that her untreated sleep apnea is almost certainly playing a role in this. Her last recurrence was back in 2019 at which time she was ill successfully cardioverted back to sinus rhythm. The patient might be an attractive candidate for radiofrequency ablation of the caval tricuspid isthmus since it appears she has typical right atrial flutter on the other hand obviously those services are not available at this institution. I therefore think we should proceed with a DC cardioversion and discharge her when she is back in sinus rhythm. She can follow-up with my partner and consider a consultation with the bag valver as an outpatient. Unfortunately she has not been kept NPO and therefore I cannot do this procedure this morning. It is possible that my partner who is here the rest of the day can do this this afternoon if not we can proceed with this tomorrow morning. Christian Lazar MD [facility] History of Present Illness History of Present Illness Consult date/time: 04/23/21 09:24 Consult reason: Other (Atrial flutter) Reason For Visit: A Fib w/ RVR Narrative: This is a 60-year-old woman I am seeing at the request of the hospitalist because of a symptomatic recurrence of atrial flutter. She has a history of atrial flutter with several recurrences over the last 7-8 years. Initially she was treated with anticoagulation and a beta-bryce. For a number years she has been taking flecainide to maintain sinus rhythm. She reports to be compliant with the medication and yesterday came into the hospital because she was at home doing her usual activities to get cleaned up in the morning and suddenly noticed the sense of tachycardia/palpitations and some shortness of breath. She recognize these as typical symptoms were her arrhythmia and so she came to the emergency room at where she was in fact found to be in atrial flutter with 2-1 conduction and was admitted for further evaluation and management. She was maintained on her medical regimen and also placed on intravenous diltiazem which is slowing the AV conduction somewhat and she is essentially asymptomatic at this time. She is receiving a diltiazem infusion at a low dosage. She has no other symptoms or complaints. She is not known to have any other cardiac pathology and follows with my partner, Dr. Landry for follow-up of her atrial flutter. Her principal comorbidity that is relevant to this is morbid obesity and obstructive sleep apnea. She indicates that she is not compliant with CPAP she tried using her of positive pressure mask when her diagnosis was made and found the mask on pleasant and has not been treating her apnea. Review of Systems Constitutional: Constitutional: Reports no additional constitutional complaints Eyes: Eyes: Reports no additional eye complaints ENT: Reports system reviewed and no additional complaints, except as documented Cardiovascular: Cardiovascular: Reports palpitations Respiratory: Respiratory: Reports no additional respiratory complaints Gastrointestinal: Gastrointestinal: Reports no additional gastrointestinal complaints Musculoskeletal: Musculoskeletal: Reports no additional musculoskeletal complaints Integumentary/Breasts: Skin/Breast: Reports system reviewed and no additional complaints, except as docu Neurologic: Reports system reviewed and no additional complaints, except as documented Endocrine: Endocrine: Reports no additional endocrine complaints Hematologic/Lymphatic: Hematologic/Lymphatic: Reports no additional hematologic/lymphatic complaints Allergic/Immunologic: Allergic/Immunologic: Reports no additional allergic/immunologic complaints [facility] Past Medical History Medical History (Updated 04/22/21 @ 16:44 by Amena Valdez PA-C) Atrial flutter Dysthymia Essential
[2021-04-23] MEDS: ESCITALOPRAM OXALATE 10 MG TABLET PO (10:31)
[2021-04-23] MEDS: FUROSEMIDE 20 MG TABLET PO (10:31)
[2021-04-23] MEDS: PANTOPRAZOLE 40 MG TABLET PO (10:32)
--- NOTE | 2021-04-23 20:31 | ECG_ITS ---
Measurements Intervals [place] Rate: 99 P: 86 DE: 204 QRS: 60 QRSD: 116 T: 75 QT: 347 QTc: 447 Interpretive Statements ATRIAL FLUTTER WITH RAPID VENTRICULAR RESPONSE AND VARIABLE AV BLOCK MODERATE INTRAVENTRICULAR CONDUCTION DELAY [110+ ms QRS DURATION] ABNORMAL ECG COMPARED TO ECG 04/22/2021 15:27:48 HEART RATE HAS DECREASED OTHERWISE NO SIGNIFICANT CHANGE Electronically Signed On 04-24-2021 13:49:28 VP ANCILLARY by Fritz Estrada M.D.
[2021-04-24] VITALS (25 sets, daily range): BP systolic 100–160; BP diastolic 19–105; PULSE 46–122; RESP 12–20; TEMP 35.6–36.8; O2SAT 94–100
[2021-04-24] MEDS: LEVOTHYROXINE SODIUM 75 MCG TABLET PO (05:26)
[2021-04-24] MEDS: PANTOPRAZOLE 40 MG TABLET PO (08:07)
[2021-04-24] MEDS: FUROSEMIDE 20 MG TABLET PO (08:08)
[2021-04-24] MEDS: FLECAINIDE ACETATE 100 MG TABLET PO (08:08)
[2021-04-24] MEDS: ESCITALOPRAM OXALATE 10 MG TABLET PO (08:08)
--- NOTE | 2021-04-24 08:41 | ECG_ITS ---
Measurements Intervals [place] Rate: 110 P: 93 CO: 183 QRS: 40 QRSD: 122 T: 64 QT: 383 QTc: 519 Interpretive Statements ATRIAL FLUTTER WITH RAPID VENTRICULAR RESPONSE AND VARIABLE AV BLOCK ABNORMAL ECG COMPARED TO ECG 04/23/2021 20:39:16 NO SIGNIFICANT CHANGE Electronically Signed On 04-24-2021 14:14:02 BUS MECHANIC by Fritz Estrada M.D.
--- NOTE | 2021-04-24 10:50 | WPDMODSED ---
Moderate Sedation Note-Pt Data Patient Data Diagnosis: Atrial flutter with rapid ventricular response Present Complaint: None Procedure to be performed/Plan: Elective electrical cardioversion Allergies Allergy/AdvReac Type Severity Reaction Status Date / Time No Known Allergies Allergy Verified 04/22/21 11:57 Home Medications Medication Instructions Recorded Confirmed Type omeprazole 20 mg capsule,delayed 20 mg PO DAILY 01/04/19 04/22/21 History release flecainide 100 mg tablet 100 mg PO Q12H #180 tablet 02/23/20 04/22/21 Rx escitalopram oxalate 10 mg tablet 10 mg PO DAILY #90 tablet 04/29/20 04/22/21 Rx atorvastatin 10 mg PO HS 04/22/21 04/22/21 History furosemide 20 mg PO DAILY 04/22/21 04/22/21 History levothyroxine 75 mcg PO QAM 04/22/21 04/22/21 History rivaroxaban [Xarelto] 20 mg PO HS 04/22/21 04/22/21 History Current Medications: Active Medications Atorvastatin Calcium (Atorvastatin 10 Mg Tablet) 10 mg PO [facility] Last Admin: 04/23/21 19:43 Dose: 10 mg Documented by: Escitalopram Oxalate (Escitalopram Oxalate 10 Mg Tablet) 10 mg PO DAILY [facility] Last Admin: 04/24/21 08:08 Dose: 10 mg Documented by: Flecainide Acetate (Flecainide Acetate 100 Mg Tablet) 100 mg PO Q12HR [facility] Last Admin: 04/24/21 08:08 Dose: 100 mg Documented by: Furosemide (Furosemide 20 Mg Tablet) 20 mg PO DAILY [facility] Last Admin: 04/24/21 08:08 Dose: 20 mg Documented by: Diltiazem HCl (Cardizem 100 Mg/100 Ml) 100 mg in 100 mls @ 5 mls/hr IV CONT .Q20H [facility]; Protocol Last Admin: 04/23/21 19:44 Dose: 5 mg/hr, 5 mls/hr Documented by: Levothyroxine Sodium (Levothyroxine Sodium 75 Mcg Tablet) 75 mcg PO DAILY@0630 [facility] Last Admin: 04/24/21 05:26 Dose: 75 mcg Documented by: Pantoprazole Sodium (Pantoprazole 40 Mg Tablet) 40 mg PO QAM [facility] Last Admin: 04/24/21 08:07 Dose: 40 mg Documented by: Rivaroxaban (Rivaroxaban 20 Mg Tablet) 20 mg PO [facility] Last Admin: 04/23/21 19:42 Dose: 20 mg Documented by: Sedation/Anesthesia: No previous sedation/anesthesia problems (including family history). 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 Osteoarthritis Paroxysmal atrial fibrillation Restless leg syndrome Surgical History Surgical History History of arthroplasty of right knee History of colonoscopy with polypectomy History of endometrial ablation History of thyroidectomy History of tonsillectomy Family History Family History Mother Diabetes mellitus, Onset Age: 86 Cerebrovascular accident, Onset Age: 86 Family history of congestive heart failure, Onset Age: 86 Father Acute myocardial infarction, Onset Age: 63 Other Family history of arthritis Family history of cardiovascular disease Family history of hearing loss Hypertension Social History Social History Social History: Surrogate decision-maker: Joseline Boucher, . CODE STATUS: Full code. Smoking status: Current every day smoker Tobacco type: e-cigarettes/vaping Second hand tobacco smoke exposure: Yes Alcohol intake: never Substance use: never Substance use type: does not use Mod Sed Physical Exam Physical Exam Pre Procedural Exam: Normal: Appearance, Eyes, Ears, Nose, Neck (Supple, normal range of motion, obese), Throat (Posterior hypopharynx clear, nonerythematous), Airway (Normal anatomy, no obstruction), Lungs (Clear to auscultation bilaterally), Heart Size, Heart Rate (Tachycardic), Heart Rhythm (Regularly regular), Neuro Exam, Abdomen (Obese), Extremities and Skin Hours since solid felix
--- NOTE | 2021-04-24 10:51 | P.PCNCVR_ITS ---
Cardioversion Cardioversion Date of procedure: 04/24/21 Procedure: Elective electrical cardioversion Pre-op diagnosis: Atrial flutter with rapid ventricular response Post-op diagnosis: Same Indications: Atrial flutter with rapid ventricular response Description of procedure: Brief history present illness: Patient is a pleasant 60 female with a history of paroxysmal atrial flutter on chronic anticoagulation, hyperlipidemia, hypothyroidism, morbid obesity, history of PATRICK admitted with symptomatic atrial flutter with RVR refractory to medical therapy referred for elective electrical cardioversion in attempt to restore sinus rhythm. She has not missed a single dose of anticoagulation in least 4 weeks. Therefore, transesophageal echocardiographic guidance is not indicated. Procedure in detail: After verbal and written informed consent was obtained the patient risks, benefits, and alternatives explained in detail the patient agreed to proceed with the plan of care as outlined above. Patient was evaluated at bedside in [facility] room. On examination, neck was supple with normal range of motion, no restrictions to opening of the oral cavity, jaw angle and posterior hypopharynx was clear. Lungs were clear to auscultation. Patient was placed in appropriate 30 to 45 degree angle in a supine position. Patient was monitored throughout the study with telemetry, oxygen saturation, end-tidal CO2 monitoring, blood pressure, heart rate, and respirations. Anterior and posterior defibrillator pads placed in the appropriate positions. After confirmation of adequate sedation electrical cardioversion was carried out without complication. Patient tolerated the procedure well without difficulty. Sedation: Moderate Sedation/Anesthesia administration: Patient denied previous intolerance or complications with anesthesia/sedation. Please see sedation note for documentation of the pre-procedure physical examination. A total of 5mg intravenous Versed and a total of 100mcg intravenous Fentanyl in multiple divided doses was utilized for moderate sedation. Sedation start time was 1059 and end time was 1123 for a total of 24 minutes [id number] intra-procedure time. Sedation was administered by a qualified observer Sandra Ruvalcaba RN under my supervision with intra-procedure [id number] observation and management throughout the entirety of the procedure. There were no other issues or complications and patient tolerated the procedure well and sedation protocol well and I was present for the entirety. Findings: Elective electrical cardioversion: After confirmation of adequate sedation and persistence of atrial flutter with rapid ventricular response, 200 joules synched biphasic energy x1 was delivered with immediate buddhist of sinus rhythm. Twelve lead EKG was obtained postprocedure confirming sinus rhythm. Complications: None Conclusion: Successful buddhist of sinus rhythm status post 200 joules synched biphasic energy x1. Recommendation: Continue systemic anticoagulation without interruption particular the next 30 days post cardioversion to reduce embolic stroke risk. Continue flecainide. Will attempt to add low-dose metoprolol if heart rate permits prior to discharge to reduce recurrence risk. Discussed strong recommendation to reconsider treatment of PATRICK. Patient will follow up with Dr. Landry as an outpatient to discuss appropriateness for atrial flutter ablation.
--- NOTE | 2021-04-24 11:40 | ECG_ITS ---
Measurements Intervals [place] Rate: 51 P: 55 [place]: 222 QRS: 40 QRSD: 116 T: 39 QT: 483 QTc: 447 Interpretive Statements SINUS BRADYCARDIA WITH FIRST DEGREE AV BLOCK NONSPECIFIC INTRAVENTRICULAR CONDUCTION DELAY [110+ ms QRS DURATION] BORDERLINE ECG COMPARED TO ECG 04/24/2021 10:17:55 SINUS BRADYCARDIA HAS REPLACED ATRIAL FLUTTER Electronically Signed On 04-25-2021 15:09:12 BOW MACHINE OPERATOR by Fritz Estrada M.D.
--- NOTE | 2021-04-24 16:29 | PM.IMPN ---
Progress Note: A&P Assessment and Plan (1) Atrial fibrillation with rapid ventricular response: Code(s): I48.91 - Unspecified atrial fibrillation Status: Acute Assessment and Plan: Patient takes flecainide and states compliance with this drug. She was started on diltiazem drip in the emergency department which will be continued. Cardiology has been consulted as she has required cardioversion in the past. Continue rivaroxaban. Troponin x3 negative this admission TSH normal at 1.9 magnesium is normal at 2.0 potassium normal at 3.9 Status post successful cardioversion 04/24/2021 (2) Polycythemia: Code(s): D75.1 - Secondary polycythemia Status: Acute Assessment and Plan: She has not had labs done at this facility for over a year and a half but she has never had documented polycythemia. Does not appear dehydrated. She may very well chronic hypoxia from untreated sleep apnea with possible obesity hypoventilation overlap. Repeat labs with improvement in polycythemia (3) Obstructive sleep apnea: Code(s): G47.33 - Obstructive sleep apnea (adult) (pediatric) Status: Acute Assessment and Plan: She has not been tolerant to CPAP despite trying multiple different masks. We discussed the importance of treating her sleep apnea . She did not try it last night. She will attempted tonight with auto CPAP from this hospital. Has also suggested seeing a sleep specialist for titration (4) Hypothyroidism: Code(s): E03.9 - Hypothyroidism, unspecified Status: Acute Assessment and Plan: Continue levothyroxine. TSH within normal limits. Subjective Date/time seen: 04/24/21 16:29 Interval history: HPI:This is a 60-year-old female with paroxysmal atrial fibrillation, hypertension, hyperlipidemia, hypothyroidism, and untreated obstructive sleep apnea who presented to the emergency department today for evaluation of palpitations. Shortly after getting out of bed this morning, she developed sudden onset of palpitations with sensations of a racing heart, mild chest tightness, and shortness of breath. The symptoms are similar to those she has had with atrial fibrillation in the past and after approximately 3 hours she decided to come in for evaluation. Indeed she was found to be in atrial fibrillation/flutter with rapid ventricular response and she was started on a Cardizem drip in the emergency department and she has since been admitted to the IMU for further care. She is a patient of Dr. Landry and she has been on flecainide for many years, previously requiring cardioversion. She states compliance with her medication and she has not had any recent illnesses though she admits to increasing familial stress over the past 1 week. At the time of my evaluation she has no specific complaints and she is not currently having any chest pain. 04/23/2021 remains in atrial fibrillation. On diltiazem drip. Denies any new complaints. No shortness of breath or chest pain no leg swelling. Did not try the CPAP machine last night. 04/24/2021 underwent successful hoahaoism of sinus rhythm with cardioversion this afternoon. Denies any other complaints. No fever chills Review of Systems Review of Systems: All systems reviewed & are unremarkable except as noted in HPI and below (HPI) Exam Narrative: General: Well-developed female HEENT: PERRL, EOMI. Sclerae anicteric. Oral mucosa moist. Oropharynx is crowded. Neck: Supple. Exam limited by neck circumference. No obvious JVD. Respiratory: Lungs are clear to auscultation bilaterally. Cardiovascular: Regular rate and rhythm with S1-S2. Gastrointestinal: Abdomen is soft, obese, nontender, and nondistended with positive bowel sounds. Skin: Warm and dry. No rash or lesions on limited exam. Extremities: No cyanosis or clubbing. 1+ periankle edema bilaterally with trace bilateral pretibial edema. Radial and pedal pulses intact. Neurological: Alert. Cr
--- NOTE | 2021-04-24 17:55 | PM.DS ---
DS: Admitting Diagnosis Discharge Date 04/24/2021 Admitting Diagnosis afib with rvr DS: Discharge Diagnosis Discharge Diagnosis (1) Atrial fibrillation with rapid ventricular response: Code(s): I48.91 - Unspecified atrial fibrillation Status: Acute Assessment and Plan: Patient takes flecainide and states compliance with this drug. She was started on diltiazem drip in the emergency department which will be continued. Cardiology has been consulted as she has required cardioversion in the past. Continue rivaroxaban. Troponin x3 negative this admission TSH normal at 1.9 magnesium is normal at 2.0 potassium normal at 3.9 Status post successful cardioversion 04/24/2021 Added on metoprolol 12.5 mg twice daily as recommended by Cardiology at discharge (2) Polycythemia: Code(s): D75.1 - Secondary polycythemia Status: Acute Assessment and Plan: She has not had labs done at this facility for over a year and a half but she has never had documented polycythemia. Does not appear dehydrated. She may very well chronic hypoxia from untreated sleep apnea with possible obesity hypoventilation overlap. Repeat labs with improvement in polycythemia (3) Obstructive sleep apnea: Code(s): G47.33 - Obstructive sleep apnea (adult) (pediatric) Status: Acute Assessment and Plan: She has not been tolerant to CPAP despite trying multiple different masks. We discussed the importance of treating her sleep apnea . She did not try it last night. She will attempted tonight with auto CPAP from this hospital. Has also suggested seeing a sleep specialist for titration (4) Hypothyroidism: Code(s): E03.9 - Hypothyroidism, unspecified Status: Acute Assessment and Plan: Continue levothyroxine. TSH within normal limits. DS: Summary Hospital Course Hospital Course: See above Time Spent with Patient Time attestation: Total time spent providing and/or coordinating discharge services: 45 minutes Exam Narrative: General: Well-developed female HEENT: PERRL, EOMI. Sclerae anicteric. Oral mucosa moist. Oropharynx is crowded. Neck: Supple. Exam limited by neck circumference. No obvious JVD. Respiratory: Lungs are clear to auscultation bilaterally. Cardiovascular: Regular rate and rhythm with S1-S2. Gastrointestinal: Abdomen is soft, obese, nontender, and nondistended with positive bowel sounds. Skin: Warm and dry. No rash or lesions on limited exam. Extremities: No cyanosis or clubbing. 1+ periankle edema bilaterally with trace bilateral pretibial edema. Radial and pedal pulses intact. Neurological: Alert. Cranial nerves 2-12 are grossly intact. No gross focal deficits to casual conversation. Psychiatric: Pleasant and cooperative with normal mood and affect. Judgment and insight intact. DS: Data Procedures/Treatments: Cardioversion Cardioversion Date of procedure: 04/24/21 Procedure: Elective electrical cardioversion Pre-op diagnosis: Atrial flutter with rapid ventricular response Post-op diagnosis: Same Indications: Atrial flutter with rapid ventricular response Description of procedure: Brief history present illness: Patient is a pleasant 60 female with a history of paroxysmal atrial flutter on chronic anticoagulation, hyperlipidemia, hypothyroidism, morbid obesity, history of PATRICK admitted with symptomatic atrial flutter with RVR refractory to medical therapy referred for elective electrical cardioversion in attempt to restore sinus rhythm. She has not missed a single dose of anticoagulation in least 4 weeks. Therefore, transesophageal echocardiographic guidance is not indicated. Procedure in detail: After verbal and written informed consent was obtained the patient risks, benefits, and alternatives explained in detail the patient agreed to proceed with the plan of care as outlined above. Patient was evaluated at bedside in the [facility] procedure room. On examination, n
[2021-04-24] MEDS: METOPROLOL TARTRATE 12.5 MG TABLET PO (18:31)
== END 2021-04-24 18:34 | disposition home or self-care (01) | DRG 309 ==
LOC: ANHED 13:39 → ANHIMU 14:44
PROVIDERS: Internal Medicine Cardiovascular Disease; Physician Assistant; Admitting Provider Internal Medicine; Emergency Provider Emergency Medicine; PCP Internal Medicine; Visit Provider Internal Medicine
PROC: 5A2204Z Restoration of Cardiac Rhythm, Single (ICD-10-PCS; principal; 2021-04-24 11:00)
DX: I48.92 Unspecified atrial flutter (principal); Z68.42 Body mass index [BMI] 45.0-49.9, adult; I48.20 Chronic atrial fibrillation, unspecified; I10 Essential (primary) hypertension; D75.1 Secondary polycythemia; E66.01 Morbid (severe) obesity due to excess calories; E78.5 Hyperlipidemia, unspecified; E03.9 Hypothyroidism, unspecified; F17.290 Nicotine dependence, other tobacco product, uncomplicated; G47.33 Obstructive sleep apnea (adult) (pediatric); G25.81 Restless legs syndrome; K21.9 Gastro-esophageal reflux disease without esophagitis; M19.90 Unspecified osteoarthritis, unspecified site; Z79.01 Long term (current) use of anticoagulants; Z91.19 Patient's noncompliance with other medical treatment and regimen; Z90.89 Acquired absence of other organs; Z96.651 Presence of right artificial knee joint
CPT/HCPCS: 36415; 71046; 80048; 80053; 83690; 83735; 84443; 84484; 85025; 85027; 85610; 85730; 92960; 93005; 96365; 96366; 96374; 99285; A9270; G0378; J2250; J3010; J7040

== ENCOUNTER 2021-06-23 09:56 | Outpatient (CLI) | payer OTHER, SELFPAY ==
--- NOTE | ~2021-06-23 | XR_ITS ---
XR shoulder RT min 2V DATE: 06/23/2021 10:14 INDICATION: Right shoulder pain. No known injury. TECHNIQUE: 4 views COMPARISON: None FINDINGS: There is mild degenerative change at the right acromion clavicular joint. No fracture or dislocation, periosteal reaction or bone destruction or abnormal soft tissue calcifica tion of the right shoulder is detected. IMPRESSION: Mild degenerative change Reviewed, dictated and finalized at location B. IMPRESSION: Mild degenerative change
== END 2021-06-23 09:57 | disposition home or self-care (01) ==
PROVIDERS: PCP Family Medicine; Visit Provider Family Medicine
DX: M19.011 Primary osteoarthritis, right shoulder (principal)
CPT/HCPCS: 73030

== ENCOUNTER → 2021-08-14 08:08 | Outpatient (CLI) | payer OTHER, SELFPAY ==
--- NOTE | ~2021-08-14 | MR_ITS ---
EXAMINATION: MR shoulder RT wo con DATE: 08/14/2021 08:41 INDICATION: Right shoulder pain TECHNIQUE: Magnetic resonance imaging (MRI) of the right shoulder was performed without intravenous c ontrast. Sequences included axial PD-weighted FS FSE, coronal oblique PD-weighted FS FSE, coronal obl ique T2-weighted FS FSE, sagittal PD-weighted FS FSE, and sagittal T1-weighted SE. COMPARISON: None. FINDINGS: Coracoacromial arch: The acromion undersurface is minimally curved in morphology (type I-II). Small subacromial spur and m ild thickening of the coracoacromial ligament at its acromial insertion. Mild acromioclavicular osteo arthritis. Rotator cuff: Moderate supraspinatus and mild infraspinatus tendinopathy without discrete tear. The teres minor ten don is normal. Mild subscapularis tendinopathy also without tear. Normal rotator cuff muscle bulk and signal. Biceps tendon, glenoid labrum and glenohumeral cartilage: Mild tendinopathy without tear of the intra-articular long head biceps tendon. Circumferential tearin g of the glenoid labrum. Mild glenohumeral osteoarthritis with deep chondral ulceration involving gre ater than 50% the cartilage thickness at the superomedial aspect of the humeral head. Tiny. Marginal osteophytes, mild chondral swelling and minimal subarticular edema-like signal change along the anter oinferior glenoid. Fluid: Small amount of fluid signal extending along the long head biceps tendon sheath which is disproportio olivier to the physiologic amount fluid in the glenohumeral joint consistent with mild bicipital tenosyn ovitis. Additional mild synovitis and a likely loose body at the deep subscapular recess. No intra-ar ticular loose osteochondral bodies. Small amount of fluid in the subacromial/subdeltoid bursa and sub coracoid bursa consistent with mild bursitis. Bones: Bone alignment is normal. No fracture or pathologic marrow replacing process. IMPRESSION: 1. Mild glenohumeral osteoarthritis with deep chondral ulceration along the superomedial aspect of th e humeral head and circumferential tearing of the glenoid labrum. 2. Moderate supraspinatus and mild infraspinatus tendinopathy without tear. 3. Mild bicipital tenosynovitis with mild tendinopathy of the intra-articular long head biceps tendon without tear. 4. Mild subacromial/subdeltoid and subcoracoid bursitis. Reviewed, dictated and finalized at location A. IMPRESSION: 1. Mild glenohumeral osteoarthritis with deep chondral ulceration along the sup eromedial aspect of the humeral head and circumferential tearing of the glenoid labrum. 2. Moderate supraspinatus and mild infraspinatus tendinopathy without tear. 3. Mild bicipital tenosynovitis with mild tendinopathy of the intra-articular l marta head biceps tendon without tear. 4. Mild subacromial/subdeltoid and subcoracoid bursitis.
== END ==
PROVIDERS: PCP Internal Medicine; Visit Provider Orthopaedic Surgery
DX: M75.21 Bicipital tendinitis, right shoulder (principal); M19.011 Primary osteoarthritis, right shoulder
CPT/HCPCS: 73221

== ENCOUNTER 2021-08-16 10:51 | Outpatient (CLI) | payer OTHER, SELFPAY ==
[2021-08-16 11:30] LABS: Basophils Absolute Auto 0.1 K/mm3 (0.0-0.1); Basophils Percent Auto 0.7 % (0.2-1.2); Eosinophils Absolute Auto 0.3 K/mm3 (0-0.3); Hematocrit 41.5 % (37.0-47.0); Immature Granulocyte Absolute 0.01 K/mm3 (0.00-0.031); Immature Granulocyte Percent A 0.1 % (0-0.5); Lymphocytes Absolute Auto 2.12 K/mm3 (0.9-3.2); Lymphocytes Percent Auto 25.1 % (18.3-44.2); Mean Corpuscular HGB Conc 31.3 g/dl (32-36); Mean Corpuscular Hemoglobin 26.9 pg (26-34); Mean Corpuscular Volume 85.7 fl (80-100); Mean Platelet Volume 11.5 fl (7.4-10.4); Monocytes Absolute Auto 0.6 K/mm3 (0.1-0.6); Neutrophils Absolute Auto 5.4 K/mm3 (1.3-6.7); Neutrophils Percent Auto 64.1 % (45.5-73.1); Platelet Count Result 292 k/mm3 (150-375); Red Blood Count 4.84 M/mm3 (4.2-5.4); Red Cell Distribution Width 16.1 % (11.5-14.5); White Blood Count 8.5 K/mm3 (4.5-10.0)
[2021-08-16 11:35] LABS: Anion Gap 6 mmol/L (8-16); Blood Urea Nitrogen 18 mg/dL (7-17); Calcium 8.4 mg/dL (8.4-10.2); Carbon Dioxide 28 mmol/L (22-30); Chloride 106 mmol/L (98-107); Estimated Glomerular Filt Rate > 60; Glucose 114 mg/dL (65-110); Potassium 4.1 mmol/L (3.4-5.0); Sodium 140 mmol/L (137-145)
== END 2021-08-16 10:52 | disposition home or self-care (01) ==
LOC: ANHLAB 10:54
PROVIDERS: PCP Internal Medicine
DX: I48.0 Paroxysmal atrial fibrillation (principal)
CPT/HCPCS: 36415; 80048; 85025

== ENCOUNTER 2022-05-29 09:00 | Outpatient (NON) | payer OTHER, SELFPAY | END 2022-05-29 09:01 | disposition home or self-care (01) | LOC: ANHLAB 06-01 08:55 | PROVIDERS: PCP Family Medicine; Visit Provider Family Medicine | DX: L82.1 Other seborrheic keratosis (principal) | CPT/HCPCS: 88305 ==

== ENCOUNTER 2022-06-14 08:36 | Emergency (ER) | payer OTHER, SELFPAY ==
[2022-06-14 08:48] VITALS: BP 173/71; PULSE 62; RESP 18; TEMP 37.1; O2SAT 98
--- NOTE | 2022-06-14 08:57 | ED.URI ---
HPI - URI/Sore Throat General Chief Complaint: Upper Respiratory Infection Stated Complaint: Sinus/Throat Time Seen by Provider: 06/14/22 08:57 Source: patient, RN notes reviewed and old records reviewed Mode of arrival: ambulatory Limitations: no limitations History of Present Illness HPI Narrative: 62-year-old female presents to the [facility] with complaints of 2 weeks body aches feeling fevers, chest and sinus congestion as well as sore throat. Has tried irst-hld-vaonhwn products. Onset (ago): week(s) (Over 2 weeks) Related Data Allergies Allergy/AdvReac Type Severity Reaction Status Date / Time No Known Allergies Allergy Verified 06/14/22 08:48 Review of Systems Review of Systems: All systems reviewed & are unremarkable except as noted in HPI and below Constitutional: Constitutional: Reports no additional constitutional complaints Eyes: Eyes: Reports no additional eye complaints ENT: Reports as per HPI Cardiovascular: Cardiovascular: Reports no additional cardiovascular complaints, Denies chest pain and Denies dyspnea Respiratory: Respiratory: Reports as per HPI, Reports chest congestion, Denies cough and Denies dyspnea Gastrointestinal: Gastrointestinal: Reports no additional gastrointestinal complaints, Denies abdominal pain, Denies nausea and Denies vomiting Musculoskeletal: Musculoskeletal: Reports no additional musculoskeletal complaints Integumentary/Breasts: Skin/Breast: Reports system reviewed and no additional complaints, except as docu Neurologic: Reports system reviewed and no additional complaints, except as documented Psychiatric: Psychiatric: Reports no additional psychiatric complaints Allergic/Immunologic: Allergic/Immunologic: Reports no additional allergic/immunologic complaints PMFSH Past Medical History Medical History Afib Atrial flutter Dysthymia Essential hypertension Gastroesophageal reflux disease without esophagitis Hyperlipidemia Hypertension skilled nursing current use of anticoagulant Obstructive sleep apnea Intolerant to CPAP. Osteoarthritis Paroxysmal atrial fibrillation Restless leg syndrome Wears glasses Surgical History Surgical History History of arthroplasty of right knee (~2016) History of colonoscopy with polypectomy History of endometrial ablation (~2002) History of thyroidectomy (~1997) History of tonsillectomy (~1962) S/P ablation of atrial flutter (~2021) Family History Family History Mother Diabetes mellitus, Onset Age: 86 Cerebrovascular accident, Onset Age: 86 Family history of congestive heart failure, Onset Age: 86 Father Acute myocardial infarction, Onset Age: 63 Other Family history of arthritis Family history of cardiovascular disease Family history of hearing loss Hypertension Social History Social History Social History: Surrogate decision-maker: Joseline Boucher, . CODE STATUS: Full code. Smoking status: Never smoker Tobacco type: e-cigarettes/vaping Second hand tobacco smoke exposure: Yes Alcohol intake: never Substance use: never Substance use type: does not use Lack of Transportation: No Lack of Food: Never True Current Housing: I Have Housing Concerned About Future Housing: No Difficulty Paying Gas/Electric Bills: No Difficulty Paying for Meds: No Currently Unemployed: No Education: Decline to Answer Difficulty w/ Childcare or Family Care: No Living arrangements: with family Occupation/Education: retired Gender identity (if verbalized by the patient): Female Spiritual care concerns: No Comments At the time of my signature, I reviewed and agree with the nursing past medical, surgical, social, and family history. There is no relevant family hist
== END 2022-06-14 09:19 | disposition home or self-care (01) ==
PROVIDERS: Emergency Provider Nurse Practitioner; PCP Family Medicine
DX: J32.9 Chronic sinusitis, unspecified (principal); J02.9 Acute pharyngitis, unspecified; F17.290 Nicotine dependence, other tobacco product, uncomplicated; I10 Essential (primary) hypertension; K21.9 Gastro-esophageal reflux disease without esophagitis; E78.5 Hyperlipidemia, unspecified; Z79.01 Long term (current) use of anticoagulants; G25.81 Restless legs syndrome; G47.33 Obstructive sleep apnea (adult) (pediatric)
CPT/HCPCS: 87081; 87147; 87880; 99213; G0463

== ENCOUNTER 2022-06-30 09:48 | Outpatient (CLI) | payer OTHER, SELFPAY ==
[2022-06-30 19:01] LABS: Alanine Aminotransferase 24 U/L (6-35); Albumin Level 3.8 g/dL (3.5-5.1); Alkaline Phosphatase 114 U/L (38-126); Anion Gap 7 mmol/L (8-16); Aspartate Amino Transferase 37 U/L (14-36); Bilirubin,Total 1.3 mg/dL (0.2-1.3); Blood Urea Nitrogen 13 mg/dL (7-17); Calcium 8.5 mg/dL (8.4-10.2); Carbon Dioxide 32 mmol/L (22-30); Chloride 104 mmol/L (98-107); Cholesterol 140 mg/dL (0-200); Estimated Glomerular Filt Rate > 60; Glucose 101 mg/dL (65-110); HDL Direct 37 mg/dL; Potassium 3.7 mmol/L (3.4-5.0); Sodium 143 mmol/L (137-145); Triglycerides 139 mg/dL (<150)
[2022-06-30 19:12] LABS: LDL Cholesterol Direct 76 mg/dL
[2022-06-30 19:35] LABS: Thyroid Stimulating Hormone Reflex 0.032 uIU/mL (0.465-4.68)
[2022-07-01 01:04] LABS: Free T4 Free Thyroxine Reflex 1.49 ng/dL (0.78-2.19)
[2022-07-01 03:31] LABS: Total Triiodothyronine (T3) 1.19 NG/ML (0.97-1.69)
== END 2022-06-30 09:49 | disposition home or self-care (01) ==
LOC: ANHGOSHLAB 09:49
PROVIDERS: PCP Family Medicine; Visit Provider Family Medicine
DX: E03.9 Hypothyroidism, unspecified (principal); Z13.228 Encounter for screening for other metabolic disorders; E78.5 Hyperlipidemia, unspecified
CPT/HCPCS: 36415; 80053; 80061; 84439; 84443; 84480

== ENCOUNTER 2022-08-10 09:26 | Outpatient (CLI) | payer OTHER, SELFPAY | END 2022-08-10 09:27 | disposition home or self-care (01) | PROVIDERS: PCP Family Medicine; Visit Provider Family Medicine | DX: E03.9 Hypothyroidism, unspecified (principal) | CPT/HCPCS: 36415; 84443 ==

== ENCOUNTER 2023-01-06 10:32 | Outpatient (CLI) | payer OTHER, SELFPAY ==
[2023-01-06 12:01] LABS: Basophils Absolute Auto 0.1 K/mm3 (0.0-0.1); Basophils Percent Auto 0.7 % (0.2-1.2); Eosinophils Absolute Auto 0.2 K/mm3 (0-0.3); Eosinophils Percent Auto 1.9 % (0-4.4); Hematocrit 44.3 % (37.0-47.0); Hemoglobin 13.8 g/dL (12.0-15.0); Immature Granulocyte Absolute 0.02 K/mm3 (0.00-0.031); Immature Granulocyte Percent A 0.2 % (0-0.5); Lymphocytes Absolute Auto 2.13 K/mm3 (0.9-3.2); Lymphocytes Percent Auto 23.7 % (18.3-44.2); Mean Corpuscular HGB Conc 31.2 g/dl (32-36); Mean Corpuscular Volume 86.7 fl (80-100); Mean Platelet Volume 11.5 fl (7.4-10.4); Monocytes Absolute Auto 0.7 K/mm3 (0.1-0.6); Neutrophils Absolute Auto 5.9 K/mm3 (1.3-6.7); Neutrophils Percent Auto 65.5 % (45.5-73.1); Platelet Count Result 279 k/mm3 (150-375); Red Blood Count 5.11 M/mm3 (4.2-5.4); Red Cell Distribution Width 16.2 % (11.5-14.5)
[2023-01-06 12:20] LABS: Alanine Aminotransferase 23 U/L (6-35); Albumin Level 4.1 g/dL (3.5-5.1); Alkaline Phosphatase 108 U/L (38-126); Anion Gap 11 mmol/L (8-16); Aspartate Amino Transferase 30 U/L (14-36); Bilirubin,Total 1.3 mg/dL (0.2-1.3); Blood Urea Nitrogen 19 mg/dL (7-17); Carbon Dioxide 27 mmol/L (22-30); Chloride 103 mmol/L (98-107); Estimated Glomerular Filt Rate > 60; Glucose 130 mg/dL (65-110); Sodium 141 mmol/L (137-145)
== END 2023-01-06 10:33 | disposition home or self-care (01) ==
LOC: ANHGOSHLAB 10:33
PROVIDERS: PCP Family Medicine; Visit Provider Nurse Practitioner Family
DX: E03.9 Hypothyroidism, unspecified (principal); Z00.00 Encounter for general adult medical examination without abnormal findings
CPT/HCPCS: 36415; 80053; 84443; 85025

== ENCOUNTER → 2023-02-16 12:13 | Outpatient (CLI) | payer OTHER, SELFPAY ==
--- NOTE | ~2023-02-16 | MM_ITS ---
EXAMINATION: MM screening holly BI w heather HISTORY: Screening mammogram, family history of breast cancer in her sister. TECHNIQUE: Craniocaudal and mediolateral oblique 3-D tomosynthesis images were obtained and synthetic 2-D images were generated. CAD analysis was submitted and interpreted. COMPARISON: No prior mammogram is available for comparison at this institution. BREAST PARENCHYMAL COMPOSITION: There are scattered areas of fibroglandular density. FINDINGS: No suspicious mass, calcification, or architectural distortion are identified in either jem ast to suggest malignancy. IMPRESSION: 1. No mammographic evidence of malignancy. 2. Recommend routine screening mammography in one year. BI-RADS Category 1: Negative Reviewed, dictated and finalized at location A. S ENGINEER ACCOUNT MANAGER
== END ==
PROVIDERS: PCP Family Medicine; Visit Provider Family Medicine
DX: Z12.31 Encounter for screening mammogram for malignant neoplasm of breast (principal)
CPT/HCPCS: 77063; 77067